=== PATIENT | female | born 1955 | race Two or more races ===

== ENCOUNTER 2017-06-14 09:40 | Emergency (ER) | payer OTHER ==
[~2017-06-14] VITALS: Ht 152.4 cm; Wt 78.5 kg
[~2017-06-14 09:40] MED LIST: ASPIR 8181 MG; ATORVASTATIN CA20 MG PO; BENADRYL50 MG; CATAPRES0.3 M1 PO; CIPROFLOXACIN750 MG PO; CLONAZEPAM2 MG PO; COLACE100 MG PO; COZAAR100 MG; CYMBALTA30 MG; FOLIC ACID1 MG; GLUMETZA1000 MG PO; HALOPERIDOL1 MG; HYZAAR 100-121 UDTAB; HYZAAR 100-251 UDTAB; JANUMET 50-1,1 UDTAB; LANTUS100 U/ML; LANTUS100 U/ML SUBCUTANEO; LIPITOR20 MG; LOPID PO; METHYLPRED4 MG/DOSE- PO; MOTION-TIME25 MG PO; NEURONTIN800 MG PO; NOVOLIN 70100 UNITS/ SQ; NOVOLIN N100 UNITS/ SQ; NOVOLOG100 U/ML SUBCUTANEO; PERCOCET 5/3251 TAB PO; PLAVIX75 MG; PYRIDOXINE HCL25 MG; SEROQ PO; SYNTHROID50 MCG; VERAPAMIL ER240 MG; VERAPAMIL ER240 MG PO; XANAX XR2 MG; XANAX XR2 MG PO; XANAX1 MG; ZANTAC300 MG
[2017-06-14] MEDS ORDERED: QUETIAPINE FUM100 MG (10:07)
[2017-06-14] MEDS ORDERED: OMEGA 3 1,0001 EACH (10:08)
[2017-06-14] MEDS ORDERED: SYNTHROID75 MCG (10:10)
== END 2017-06-14 23:28 | disposition home or self-care (01) ==
LOC: ER 09:40
DX: J45.901 Unspecified asthma with (acute) exacerbation (principal); J09.X2 Influenza due to identified novel influenza A virus with other respiratory manifestations; J45.998 Other asthma

== ENCOUNTER 2017-06-30 12:31 | Outpatient (CLI) | payer OTHER ==
[~2017-06-30 12:31] MED LIST changes: +OMEGA 3 1,0001 EACH; +QUETIAPINE FUM100 MG; +SYNTHROID75 MCG
== END 2017-06-30 12:42 | disposition home or self-care (01) ==
LOC: RAD 12:31
DX: J44.1 Chronic obstructive pulmonary disease with (acute) exacerbation (principal)

== ENCOUNTER → 2018-05-07 | Emergency (ER) | payer OTHER ==
[~2018-05-07] VITALS: Ht 154.9 cm; Wt 83.5 kg
[~2018-05-07] MED LIST changes: +CELECOXIB100 MG PO
== END | disposition home or self-care (01) ==
LOC: ER 14:50
DX: S90.31XA Contusion of right foot, initial encounter (principal); S40.011A Contusion of right shoulder, initial encounter; S70.01XA Contusion of right hip, initial encounter; W18.09XA Striking against other object with subsequent fall, initial encounter; Y93.89 Activity, other specified; Y92.89 Other specified places as the place of occurrence of the external cause; Y99.8 Other external cause status

== ENCOUNTER 2018-07-08 20:10 | Inpatient (IN) | payer OTHER ==
[~2018-07-08] VITALS: Ht 154.9 cm; Wt 80.3 kg
[2018-07-08] MEDS ORDERED: HUMALOG100 UNIT/1 SUBCUTANEO ×2 (20:51→20:52)
[2018-07-08] MEDS ORDERED: LANTUS SOL100 UNIT/1 SUBCUTANEO (20:52)
--- NOTE | 2018-07-08 20:54 | NUR ---
PACIENTE ALERTA Y ORIENTADA X3, SIGNOS VITALES ESTABLES, SE ESCUCHA CON PITILLO, SE COLOCA EN AU HASTA SER EVALUADA.
--- NOTE | 2018-07-08 22:26 | NUR ---
EVALUA PTE. SE ORIENTA A PTE SOBRE TX MEDICO. PTE REFIERE COMPRENDER. SE REALIZAN MUESTRAS DE LABORATORIO BAJO MEDIDAS ASEPTICAS. SE ADMINISTRAN MEDICAMENTOS ISIDRO ORDEN MEDICA. SE NOTIFICA ABG A . SE MANTIENE EN OBSERVACION.
--- NOTE | 2018-07-09 07:57 | NUR ---
SE RECIBE PTE ALERTA EN COMPANIA DE LOPEZ FAMILIAR EN CAMA CON BARANDAS ELEVADA Y TIMBRE ACCECIBLE SE OBSERVA CON BUEN PATRON RESPIRATORIO, VENOPUNCION PATENTE Y GWENDOLYN DE EDEMA PTE SE MANTIENE EN OBSERVACION Y BAJO TRATAMIENTO EN ESPERA DEL DR CIFUENTES
--- NOTE | 2018-07-09 09:47 | NUR ---
SE RECIBE PTE ALERTA,ORIENTA SE ELISSA S/V LA CUAL ESTAN ALTERADOS SE LE NOTIFICA A LA ENFERMERA GRADUADA CORREA LA CUAL NOTIFICA AL DOCTOR EN TURNO.SE MANTIENE EN OBSERVACION Y MONITORIO S/V.
== END 2018-07-18 15:05 | disposition home or self-care (01) | DRG 202 ==
LOC: ER 20:10 → MEDJ 07-09 10:16
PROVIDERS: ADMIT Internal Medicine
PROC: 3E0F7GC Introduction of Other Therapeutic Substance into Respiratory Tract, Via Natural or Artificial Opening (ICD-10-PCS; principal; 2018-07-09)
PROC: 4A033R1 Measurement of Arterial Saturation, Peripheral, Percutaneous Approach (ICD-10-PCS; 2018-07-09)
PROC: BB24ZZZ Computerized Tomography (CT Scan) of Bilateral Lungs (ICD-10-PCS; 2018-07-10)
PROC: BH42ZZZ Ultrasonography of Bilateral Breasts (ICD-10-PCS; 2018-07-13)
PROC: BH02ZZZ Plain Radiography of Bilateral Breasts (ICD-10-PCS; 2018-07-14)
DX: J45.901 Unspecified asthma with (acute) exacerbation (principal); F32.3 Major depressive disorder, single episode, severe with psychotic features; J44.1 Chronic obstructive pulmonary disease with (acute) exacerbation; E03.8 Other specified hypothyroidism; E11.65 Type 2 diabetes mellitus with hyperglycemia; I11.9 Hypertensive heart disease without heart failure; D24.2 Benign neoplasm of left breast; Z87.891 Personal history of nicotine dependence; E11.42 Type 2 diabetes mellitus with diabetic polyneuropathy

== ENCOUNTER 2018-09-06 20:29 | Emergency (ER) | payer OTHER ==
[~2018-09-06] VITALS: Ht 154.9 cm; Wt 81.6 kg
[~2018-09-06 20:29] MED LIST changes: +HUMALOG100 UNIT/1 SUBCUTANEO; +LANTUS SOL100 UNIT/1 SUBCUTANEO
== END 2018-09-07 00:30 | disposition home or self-care (01) ==
LOC: ER 20:29
DX: J45.998 Other asthma (principal); J11.1 Influenza due to unidentified influenza virus with other respiratory manifestations

== ENCOUNTER 2018-09-16 13:04 | Inpatient (IN) | payer OTHER ==
[~2018-09-16] VITALS: Ht 154.9 cm; Wt 83.5 kg
--- NOTE | 2018-09-16 13:49 | NUR ---
PTE REFIERE DOLOR ABDOMINAL SE ELISSA S/V YS EUBIAC EN AREA DE OBSERVACION
[2018-09-21] MEDS ORDERED: CIPRO500 MG PO (10:26)
[2018-09-21] MEDS ORDERED: POLY119PG PO (10:27)
== END 2018-09-21 12:01 | disposition home or self-care (01) | DRG 389 ==
LOC: ER 13:04 → SEC-K 15:49 → MEDJ 15:49
PROVIDERS: ADMIT Internal Medicine
PROC: BW21ZZZ Computerized Tomography (CT Scan) of Abdomen and Pelvis (ICD-10-PCS; principal; 2018-09-18)
PROC: 3E0F7GC Introduction of Other Therapeutic Substance into Respiratory Tract, Via Natural or Artificial Opening (ICD-10-PCS; 2018-09-18)
DX: K56.690 Other partial intestinal obstruction (principal); J44.1 Chronic obstructive pulmonary disease with (acute) exacerbation; J45.998 Other asthma; E03.8 Other specified hypothyroidism; I11.9 Hypertensive heart disease without heart failure; E11.9 Type 2 diabetes mellitus without complications; M79.7 Fibromyalgia; E66.01 Morbid (severe) obesity due to excess calories; Z72.0 Tobacco use

== ENCOUNTER → 2018-09-22 13:01 | Outpatient (CLI) | payer OTHER ==
[~2018-09-22 13:01] MED LIST changes: +CIPRO500 MG PO; +POLY119PG PO
== END | disposition home or self-care (01) ==
LOC: LAB 13:01
DX: D64.89 Other specified anemias (principal); D68.8 Other specified coagulation defects; N39.0 Urinary tract infection, site not specified; E11.00 Type 2 diabetes mellitus with hyperosmolarity without nonketotic hyperglycemic-hyperosmolar coma (NKHHC); E78.2 Mixed hyperlipidemia

== ENCOUNTER → 2018-09-25 | Day surgery (SDC) | payer OTHER | END | disposition home or self-care (01) | LOC: ADM 09-24 09:00 → CIR.AMB 06:25 | DX: D24.2 Benign neoplasm of left breast (principal) ==

== ENCOUNTER 2018-12-15 18:18 | Emergency (ER) | payer OTHER ==
[~2018-12-15] VITALS: Ht 154.9 cm; Wt 83.9 kg
[2018-12-15] MEDS ORDERED: PLAVIX75 MG PO (18:55)
== END 2018-12-15 21:13 | disposition home or self-care (01) ==
LOC: ER 18:18
DX: S91.352A Open bite, left foot, initial encounter (principal); S91.351A Open bite, right foot, initial encounter; W53.11XA Bitten by rat, initial encounter; Y93.89 Activity, other specified; Y92.013 Bedroom of single-family (private) house as the place of occurrence of the external cause; Y99.8 Other external cause status

== ENCOUNTER 2019-01-28 15:07 | Emergency (ER) | payer OTHER ==
[~2019-01-28] VITALS: Ht 147.3 cm; Wt 79.4 kg
[~2019-01-28 15:07] MED LIST changes: +PLAVIX75 MG PO
== END 2019-01-28 20:06 | disposition home or self-care (01) ==
LOC: ER 15:07
DX: M25.551 Pain in right hip (principal); M25.531 Pain in right wrist

== ENCOUNTER 2019-02-04 10:46 | Outpatient (CLI) | payer OTHER | END 2019-02-04 10:48 | disposition home or self-care (01) | LOC: TOM 10:46 | DX: R10.84 Generalized abdominal pain (principal) ==

== ENCOUNTER 2019-02-11 10:21 | Outpatient (CLI) | payer OTHER | END 2019-02-11 10:37 | disposition home or self-care (01) | LOC: NUCLEAR 10:21 | DX: I70.213 Atherosclerosis of native arteries of extremities with intermittent claudication, bilateral legs (principal); I87.2 Venous insufficiency (chronic) (peripheral) ==

== ENCOUNTER 2019-02-15 10:02 | Outpatient (CLI) | payer OTHER | END 2019-02-16 10:32 | disposition home or self-care (01) | LOC: NUCLEAR 10:02 | DX: I73.9 Peripheral vascular disease, unspecified (principal) ==

== ENCOUNTER 2019-03-30 12:30 | Outpatient (CLI) | payer OTHER | END 2019-03-30 12:32 | disposition home or self-care (01) | LOC: MRI 12:30 | DX: F07.89 Other personality and behavioral disorders due to known physiological condition (principal); F03.90 Unspecified dementia, unspecified severity, without behavioral disturbance, psychotic disturbance, mood disturbance, and anxiety | CPT/HCPCS: 70551 ==

== ENCOUNTER 2019-06-22 16:07 | Emergency (ER) | payer OTHER ==
[~2019-06-22] VITALS: Ht 154.9 cm; Wt 74.4 kg
[2019-06-23] MEDS ORDERED: ZITHROMAX200 MG PO (09:45)
== END 2019-06-23 10:07 | disposition home or self-care (01) ==
LOC: ER 16:07
DX: J45.901 Unspecified asthma with (acute) exacerbation (principal); J44.1 Chronic obstructive pulmonary disease with (acute) exacerbation

== ENCOUNTER 2019-10-16 16:21 | Emergency (ER) | payer OTHER ==
[~2019-10-16] VITALS: Ht 154.9 cm; Wt 74.4 kg
[~2019-10-16 16:21] MED LIST changes: +ZITHROMAX200 MG PO
[2019-10-16] MEDS ORDERED: SEROQUEL XR300 MG (16:38)
[2019-10-16] MEDS ORDERED: HUMULIN R500 UNIT/2 (16:40)
[2019-10-16] MEDS ORDERED: LANTUS SOL100 UNIT/1 (16:40)
== END 2019-10-16 20:42 | disposition home or self-care (01) ==
LOC: ER 16:21
DX: S30.0XXS Contusion of lower back and pelvis, sequela (principal); M53.3 Sacrococcygeal disorders, not elsewhere classified; W18.39XS Other fall on same level, sequela

== ENCOUNTER 2019-12-03 07:15 | Outpatient (CLI) | payer OTHER ==
[~2019-12-03 07:15] MED LIST changes: +HUMULIN R500 UNIT/2; +LANTUS SOL100 UNIT/1; +SEROQUEL XR300 MG
== END 2019-12-03 07:27 | disposition home or self-care (01) ==
LOC: NUCLEAR 07:15
PROVIDERS: ATTEND Internal Medicine Cardiovascular Disease
DX: R07.89 Other chest pain (principal); R94.31 Abnormal electrocardiogram [ECG] [EKG]
CPT/HCPCS: 78452; 93017; A9500; J0153

== ENCOUNTER 2019-12-26 17:27 | Emergency (ER) | payer OTHER ==
[~2019-12-26] VITALS: Ht 152.4 cm; Wt 86.2 kg
== END 2019-12-26 22:16 | disposition home or self-care (01) ==
LOC: ER 17:27
DX: E11.649 Type 2 diabetes mellitus with hypoglycemia without coma (principal); F80.89 Other developmental disorders of speech and language

== ENCOUNTER 2020-02-22 20:28 | Emergency (ER) | payer OTHER ==
[~2020-02-22] VITALS: Ht 154.9 cm; Wt 83.0 kg
== END 2020-02-23 01:36 | disposition home or self-care (01) ==
LOC: ER 20:28
DX: I16.0 Hypertensive urgency (principal); I10 Essential (primary) hypertension; Z03.818 Encounter for observation for suspected exposure to other biological agents ruled out

== ENCOUNTER → 2020-10-03 07:53 | Outpatient (CLI) | payer OTHER | END | disposition home or self-care (01) | LOC: LAB 07:53 | PROVIDERS: ATTEND Obstetrics & Gynecology Obstetrics | DX: D51.3 Other dietary vitamin B12 deficiency anemia (principal); N95.1 Menopausal and female climacteric states; R97.0 Elevated carcinoembryonic antigen [CEA]; R97.1 Elevated cancer antigen 125 [CA 125]; E55.9 Vitamin D deficiency, unspecified; E11.9 Type 2 diabetes mellitus without complications; E67.3 Hypervitaminosis D; R07.89 Other chest pain ==

== ENCOUNTER 2020-10-03 10:00 | Outpatient (CLI) | payer OTHER | END 2020-10-03 10:15 | disposition home or self-care (01) | LOC: MAMO-SONO 10:00 | PROVIDERS: ATTEND Obstetrics & Gynecology Obstetrics | DX: Z12.31 Encounter for screening mammogram for malignant neoplasm of breast (principal); Z87.898 Personal history of other specified conditions; N60.11 Diffuse cystic mastopathy of right breast; N60.12 Diffuse cystic mastopathy of left breast; R10.13 Epigastric pain; N85.01 Benign endometrial hyperplasia ==

== ENCOUNTER → 2020-10-10 13:45 | Outpatient (CLI) | payer OTHER | END | disposition home or self-care (01) | LOC: NUCLEAR 13:30 | PROVIDERS: ATTEND Obstetrics & Gynecology Obstetrics | DX: M81.0 Age-related osteoporosis without current pathological fracture (principal) ==

== ENCOUNTER → 2020-11-09 12:52 | Outpatient (CLI) | payer OTHER ==
[~2020-11-09 12:52] MED LIST changes: +FUROSEMIDE20 MG PO; +PRILOSEC OTC20 MG; +VERELAN240 MG
== END | disposition home or self-care (01) ==
LOC: LAB 12:52
PROVIDERS: ATTEND Internal Medicine
DX: N18.1 Chronic kidney disease, stage 1 (principal); Z51.81 Encounter for therapeutic drug level monitoring

== ENCOUNTER 2020-11-14 09:09 | Outpatient (CLI) | payer OTHER ==
[~2020-11-14 09:09] MED LIST changes: -FUROSEMIDE20 MG PO; -PRILOSEC OTC20 MG; -VERELAN240 MG
== END 2020-11-14 09:11 | disposition home or self-care (01) ==
LOC: TOM 09:09
PROVIDERS: ATTEND Internal Medicine
DX: K63.89 Other specified diseases of intestine (principal)
CPT/HCPCS: 74177; Q9965

== ENCOUNTER 2020-12-11 14:12 | Outpatient (CLI) | payer OTHER | END 2020-12-11 14:25 | disposition home or self-care (01) | LOC: SONOGRAMA 14:12 | PROVIDERS: ATTEND Surgery | DX: D24.2 Benign neoplasm of left breast (principal); N60.12 Diffuse cystic mastopathy of left breast; N60.11 Diffuse cystic mastopathy of right breast; N60.82 Other benign mammary dysplasias of left breast; R92.0 Mammographic microcalcification found on diagnostic imaging of breast ==

== ENCOUNTER 2020-12-30 16:28 | Emergency (ER) | payer OTHER ==
[~2020-12-30] VITALS: Ht 154.9 cm; Wt 83.5 kg
[2020-12-30] MEDS ORDERED: PRILOSEC OTC20 MG (16:44)
[2020-12-30] MEDS ORDERED: VERELAN240 MG (16:44)
[2020-12-31] MEDS ORDERED: FUROSEMIDE20 MG PO (07:32)
== END 2020-12-31 09:05 | disposition home or self-care (01) ==
LOC: ER 16:28 → CPU-OBS 16:42 → ER 16:42
DX: J44.1 Chronic obstructive pulmonary disease with (acute) exacerbation (principal); E11.65 Type 2 diabetes mellitus with hyperglycemia; I11.0 Hypertensive heart disease with heart failure; I50.9 Heart failure, unspecified; R60.0 Localized edema; R07.89 Other chest pain; R06.02 Shortness of breath; Z03.818 Encounter for observation for suspected exposure to other biological agents ruled out; Z79.84 Long term (current) use of oral hypoglycemic drugs

== ENCOUNTER → 2021-05-07 | Outpatient (CLI) | payer OTHER ==
[~2021-05-07] MED LIST changes: +FUROSEMIDE20 MG PO; +PRILOSEC OTC20 MG; +VERELAN240 MG
== END | disposition home or self-care (01) ==
LOC: SONOGRAMA 11:02
PROVIDERS: ATTEND Surgery
DX: N60.11 Diffuse cystic mastopathy of right breast (principal); N60.12 Diffuse cystic mastopathy of left breast; N64.59 Other signs and symptoms in breast

== ENCOUNTER 2021-06-23 23:04 | Emergency (ER) | payer OTHER ==
[~2021-06-23] VITALS: Ht 152.4 cm; Wt 83.9 kg
[2021-06-24] MEDS ORDERED: DICY20TA PO (07:36)
[2021-06-24] MEDS ORDERED: PEPCID40 MG PO (07:36)
[2021-06-24] MEDS ORDERED: PROTONIX20 MG PO (07:36)
[2021-06-24] MEDS ORDERED: CARAFATE1 GM PO (07:36)
[2021-06-24] MEDS ORDERED: PHENERGAN25 MG PO (07:37)
== END 2021-06-24 07:59 | disposition home or self-care (01) ==
LOC: ER 23:04
DX: K29.70 Gastritis, unspecified, without bleeding (principal); R10.13 Epigastric pain; I10 Essential (primary) hypertension

== ENCOUNTER 2021-08-18 20:12 | Inpatient (IN) | payer OTHER ==
[~2021-08-18] VITALS: Ht 154.9 cm; Wt 86.2 kg
[~2021-08-18 20:12] MED LIST changes: +CARAFATE1 GM PO; +DICY20TA PO; +PEPCID40 MG PO; +PHENERGAN25 MG PO; +PROTONIX20 MG PO
[2021-08-18] MEDS ORDERED: LANTUS SOL100 UNIT/1 (20:19)
[2021-08-18] MEDS ORDERED: NEURONTIN300 MG (20:20)
[2021-08-18] MEDS ORDERED: CHILDREN'S ASPI81 MG (20:20)
[2021-08-18] MEDS ORDERED: OMEPRAZOLE20 M1 (20:20)
[2021-08-18] MEDS ORDERED: PLAVIX75 MG (20:20)
[2021-08-18] MEDS ORDERED: HUMALOG100 UNIT/2 (20:20)
[2021-08-18] MEDS ORDERED: KAPVAY0.1 MG (20:20)
[2021-08-18] MEDS ORDERED: ATORVASTATIN CA20 MG (20:21)
[2021-08-18] MEDS ORDERED: METFORMIN HCL500 MG (20:21)
[2021-08-18] MEDS ORDERED: LEVO-T75 MCG (20:21)
[2021-08-18] MEDS ORDERED: VERELAN240 MG (20:21)
[2021-08-18] MEDS ORDERED: SEROQUEL300 MG (20:21)
[2021-08-18] MEDS ORDERED: PANTOPRAZOLE SO20 MG (20:22)
[2021-08-18] MEDS ORDERED: ALPRAZOLAM ODT2 MG (20:22)
[2021-08-18] MEDS ORDERED: COZAAR25 MG (20:22)
[2021-08-18] MEDS ORDERED: CARAFATE1 GM (20:22)
[2021-08-21] MEDS ORDERED: STIOLTO RESPIMAT4 GM (14:41)
[2021-08-21] MEDS ORDERED: FAMOTIDINE40 MG (14:41)
[2021-08-21] MEDS ORDERED: METFORMIN HCL1000 M3 (14:42)
[2021-08-21] MEDS ORDERED: FUROSEMIDE40 MG (14:42)
[2021-08-21] MEDS ORDERED: OMEGA-3 ACID ETH1 GM (14:42)
[2021-08-23] MEDS ORDERED: BUPROPION HCL150 M1 PO (13:47)
[2021-08-23] MEDS ORDERED: NICOTINE PATCH1 EAC2 TOP (13:49)
[2021-08-23] MEDS ORDERED: NeuRONTin 400MG CAPS PO (13:50)
[2021-08-23] MEDS ORDERED: AMOX-CLAV 875-1 EACH PO (13:52)
[2021-08-23] MEDS ORDERED: INTESTINEX680 M1 PO (13:52)
== END 2021-08-23 14:09 | disposition home or self-care (01) | DRG 191 ==
LOC: ER 20:12 → MEDJ 08-19 10:58
PROVIDERS: ADMIT Internal Medicine; ATTEND Internal Medicine
PROC: 4A12X4Z Monitoring of Cardiac Electrical Activity, External Approach (ICD-10-PCS; principal; 2021-08-19)
DX: J44.1 Chronic obstructive pulmonary disease with (acute) exacerbation (principal); N39.0 Urinary tract infection, site not specified; N17.8 Other acute kidney failure; R06.02 Shortness of breath; R09.02 Hypoxemia; K80.80 Other cholelithiasis without obstruction; I95.89 Other hypotension; K29.00 Acute gastritis without bleeding; R41.82 Altered mental status, unspecified; D35.02 Benign neoplasm of left adrenal gland; D72.828 Other elevated white blood cell count; E11.65 Type 2 diabetes mellitus with hyperglycemia; E03.8 Other specified hypothyroidism; M79.7 Fibromyalgia; B96.89 Other specified bacterial agents as the cause of diseases classified elsewhere; I10 Essential (primary) hypertension; Z20.822 Contact with and (suspected) exposure to COVID-19; Z79.4 Long term (current) use of insulin; F17.200 Nicotine dependence, unspecified, uncomplicated; F41.8 Other specified anxiety disorders

== ENCOUNTER 2021-11-06 13:34 | Outpatient (CLI) | payer OTHER ==
[~2021-11-06 13:34] MED LIST changes: +ALPRAZOLAM ODT2 MG; +AMOX-CLAV 875-1 EACH PO; +ATORVASTATIN CA20 MG; +BUPROPION HCL150 M1 PO; +CARAFATE1 GM; +CHILDREN'S ASPI81 MG; +COZAAR25 MG; +FAMOTIDINE40 MG; +FUROSEMIDE40 MG; +HUMALOG100 UNIT/2; +INTESTINEX680 M1 PO; +KAPVAY0.1 MG; +LEVO-T75 MCG; +METFORMIN HCL1000 M3; +METFORMIN HCL500 MG; +NEURONTIN300 MG; +NICOTINE PATCH1 EAC2 TOP; +NeuRONTin 400MG CAPS PO; +OMEGA-3 ACID ETH1 GM; +OMEPRAZOLE20 M1; +PANTOPRAZOLE SO20 MG; +SEROQUEL300 MG; +STIOLTO RESPIMAT4 GM
== END 2021-11-06 13:44 | disposition home or self-care (01) ==
LOC: PPH VACUNA 13:34
PROVIDERS: ATTEND Emergency Medicine Pediatric Emergency Medicine
DX: Z23 Encounter for immunization (principal)

== ENCOUNTER 2022-01-15 09:02 | Outpatient (CLI) | payer OTHER | END 2022-01-15 09:05 | disposition home or self-care (01) | LOC: MAMO-SONO 09:02 | PROVIDERS: ATTEND Surgery | DX: Z12.31 Encounter for screening mammogram for malignant neoplasm of breast (principal); N60.11 Diffuse cystic mastopathy of right breast; N60.12 Diffuse cystic mastopathy of left breast ==

== ENCOUNTER 2022-02-26 12:50 | Outpatient (CLI) | payer OTHER | END 2022-02-26 12:54 | disposition home or self-care (01) | LOC: RAD 12:50 | PROVIDERS: ATTEND Internal Medicine | DX: M79.7 Fibromyalgia (principal); M54.17 Radiculopathy, lumbosacral region; I73.9 Peripheral vascular disease, unspecified; M51.9 Unspecified thoracic, thoracolumbar and lumbosacral intervertebral disc disorder; E61.1 Iron deficiency; K80.80 Other cholelithiasis without obstruction; N18.31 Chronic kidney disease, stage 3a; E03.8 Other specified hypothyroidism; E78.2 Mixed hyperlipidemia; K21.9 Gastro-esophageal reflux disease without esophagitis; I11.9 Hypertensive heart disease without heart failure; E55.9 Vitamin D deficiency, unspecified; E11.40 Type 2 diabetes mellitus with diabetic neuropathy, unspecified; E11.22 Type 2 diabetes mellitus with diabetic chronic kidney disease; G47.33 Obstructive sleep apnea (adult) (pediatric) ==

== ENCOUNTER 2022-03-07 06:57 | Outpatient (CLI) | payer OTHER | END 2022-03-07 06:58 | disposition home or self-care (01) | LOC: LAB 06:57 | PROVIDERS: ATTEND Surgery | DX: E11.9 Type 2 diabetes mellitus without complications (principal) ==

== ENCOUNTER → 2022-03-07 07:27 | Outpatient (CLI) | payer OTHER | END | disposition home or self-care (01) | LOC: NUCLEAR 06:45 | PROVIDERS: ATTEND Surgery | DX: I73.9 Peripheral vascular disease, unspecified (principal) ==

== ENCOUNTER 2022-06-03 10:29 | Emergency (ER) | payer OTHER ==
[~2022-06-03] VITALS: Ht 154.9 cm; Wt 82.1 kg
== END 2022-06-03 15:41 | disposition home or self-care (01) ==
LOC: ER 10:29
DX: I87.2 Venous insufficiency (chronic) (peripheral) (principal); M89.79 Major osseous defect, multiple sites; Z88.6 Allergy status to analgesic agent

== ENCOUNTER 2022-12-12 15:42 | Outpatient (CLI) | payer OTHER | END 2022-12-12 15:59 | disposition home or self-care (01) | LOC: RAD 15:42 | PROVIDERS: ATTEND Internal Medicine | DX: M54.17 Radiculopathy, lumbosacral region (principal) ==

== ENCOUNTER → 2023-03-04 10:52 | Outpatient (CLI) | payer OTHER ==
[2023-03-04 12:08] LABS: CREATININE SERUM 2.06 mg/dL (0.55-1.02)
== END | disposition home or self-care (01) ==
LOC: LAB 10:52
PROVIDERS: ATTEND Radiology Diagnostic Radiology
DX: R10.30 Lower abdominal pain, unspecified (principal); Z88.5 Allergy status to narcotic agent

== ENCOUNTER 2023-03-13 12:39 | Outpatient (CLI) | payer OTHER ==
[2023-03-13 14:07] LABS: CREATININE SERUM 1.58 mg/dL (0.55-1.02)
== END 2023-03-13 12:40 | disposition home or self-care (01) ==
LOC: LAB 12:39
PROVIDERS: ATTEND Internal Medicine
DX: N18.31 Chronic kidney disease, stage 3a (principal); Z88.5 Allergy status to narcotic agent

== ENCOUNTER 2023-03-18 07:51 | Outpatient (CLI) | payer OTHER | END 2023-03-18 12:13 | disposition home or self-care (01) | LOC: MRI 07:51 | PROVIDERS: ATTEND Otolaryngology Otology & Neurotology | DX: I72.9 Aneurysm of unspecified site (principal); I65.1 Occlusion and stenosis of basilar artery; I65.09 Occlusion and stenosis of unspecified vertebral artery; I65.29 Occlusion and stenosis of unspecified carotid artery; Q28.2 Arteriovenous malformation of cerebral vessels; H90.A22 Sensorineural hearing loss, unilateral, left ear, with restricted hearing on the contralateral side | CPT/HCPCS: 70544; 70553; Q9965 ==

== ENCOUNTER 2024-07-01 11:32 | Emergency (ER) | payer OTHER ==
[~2024-07-01] VITALS: Ht 152.4 cm; Wt 72.6 kg
[2024-07-01] MEDS ORDERED: MIRTAZAPINE7.5 MG (12:39)
[2024-07-01] MEDS ORDERED: QUETIAPINE FUMA25 MG (12:39)
[2024-07-01] MEDS ORDERED: ACETAMINOPHEN 500 MG GEL..CAP PO ONE ×2 (15:00→15:23)
[2024-07-01] MEDS ORDERED: BUTALB/ACETAMINOPHEN/CAFFEINE 1 TAB TABLET PO ONE ×2 (16:57→17:00)
== END 2024-07-01 17:37 | disposition home or self-care (01) ==
LOC: ER 11:34
DX: S79.812A Other specified injuries of left hip, initial encounter (principal); W06.XXXA Fall from bed, initial encounter; Y93.89 Activity, other specified; Y92.89 Other specified places as the place of occurrence of the external cause; Y99.8 Other external cause status; M25.569 Pain in unspecified knee; F32.3 Major depressive disorder, single episode, severe with psychotic features; Z88.6 Allergy status to analgesic agent